=== PATIENT | female | born 1995 | race American Indian/Alaskan Native ===

== ENCOUNTER 2018-11-26 18:11 | Emergency (ER) | payer SELFPAY ==
[2018-11-26 19:15] VITALS: BP 131/67
--- NOTE | 2018-11-26 19:17 | Event Note ---
ED Screening Note Date of service: 11/26/18 Time: 19:15 ED Screening Note: 23 y o female presents to Ed cc of throat pain x yesterday am alco cc of hole in her teeth causing some pain This initial assessment/diagnostic orders/clinical plan/treatment(s) is/are subject to change based on patients health status, clinical progression and re- assessment by fellow clinical providers in the ED. Further treatment and workup at subsequent clinical providers discretion. Patient/guardian urged not to elope from the ED as their condition may be serious if not clinically assessed and managed. Initial orders include: rapid strep
--- NOTE | 2018-11-26 21:30 | Emergency Department Report ---
ED ENT HPI - General Chief complaint: Sore Throat Stated complaint: TOOTHACHE/SORE THROAT/FEVER Time Seen by Provider: 11/26/18 19:14 Source: patient Mode of arrival: Ambulatory Limitations: No Limitations - History of Present Illness MD complaint: tooth pain -: Gradual Location: tooth # Severity: moderate, severe Quality: dull Consistency: constant Improves with: none Worsens with: eating Context- Dental: history of dental caries, poor dental care Associated Symptoms: toothache - Related Data Previous Rx's Medication Instructions Recorded Last Taken Type Amoxicillin [Amoxicillin TAB] 875 mg PO BID #20 tablet 11/26/18 Unknown Rx Chlorhexidine Mouthwash [Peridex] 15 ml MM BID #1 bottle 11/26/18 Unknown Rx Ketorolac [Toradol] 10 mg PO Q6H PRN #15 tablet 11/26/18 Unknown Rx Lidocaine Viscous 2% 5 ml MM Q3H PRN #120 udc 11/26/18 Unknown Rx Allergies Allergy/AdvReac Type Severity Reaction Status Date / Time No Known Allergies Allergy Unverified 11/26/18 19:13 ED Dental HPI - General Chief complaint: Sore Throat Stated complaint: TOOTHACHE/SORE THROAT/FEVER Time Seen by Provider: 11/26/18 19:14 Source: patient Mode of arrival: Ambulatory Limitations: No Limitations - Related Data Previous Rx's Medication Instructions Recorded Last Taken Type Amoxicillin [Amoxicillin TAB] 875 mg PO BID #20 tablet 11/26/18 Unknown Rx Chlorhexidine Mouthwash [Peridex] 15 ml MM BID #1 bottle 11/26/18 Unknown Rx Ketorolac [Toradol] 10 mg PO Q6H PRN #15 tablet 11/26/18 Unknown Rx Lidocaine Viscous 2% 5 ml MM Q3H PRN #120 udc 11/26/18 Unknown Rx Allergies Allergy/AdvReac Type Severity Reaction Status Date / Time No Known Allergies Allergy Unverified 11/26/18 19:13 ED Review of Systems ROS: Stated complaint: TOOTHACHE/SORE THROAT/FEVER Other details as noted in HPI Comment: All other systems reviewed and negative ED Past Medical Hx - Past Medical History Previous Medical History?: No - Surgical History Past Surgical History?: No - Social History Smoking Status: Never Smoker Substance Use Type: None - Medications Home Medications: Home Medications Medication Instructions Recorded Confirmed Last Taken Type Amoxicillin [Amoxicillin TAB] 875 mg PO BID #20 tablet 11/26/18 Unknown Rx Chlorhexidine Mouthwash [Peridex] 15 ml MM BID #1 bottle 11/26/18 Unknown Rx Ketorolac [Toradol] 10 mg PO Q6H PRN #15 tablet 11/26/18 Unknown Rx Lidocaine Viscous 2% 5 ml MM Q3H PRN #120 udc 11/26/18 Unknown Rx ED Physical Exam - General Limitations: No Limitations General appearance: alert, in no apparent distress - Head Head exam: Present: atraumatic, normocephalic - Eye Eye exam: Present: normal appearance - ENT ENT exam: Present: mucous membranes moist, other (severe dental erosion to tooth #31 and 32. Adjacent gingival erythema, mild swelling. No discharge or bleeding is apparent. Tongue and uvula are midline. Airway is patent.) - Neck Neck exam: Present: normal inspection - Respiratory Respiratory exam: Present: normal lung sounds bilaterally. Absent: respiratory distress - Cardiovascular Cardiovascular Exam: Present: regular rate, normal rhythm. Absent: systolic murmur, diastolic murmur, rubs, gallop - GI/Abdominal GI/Abdominal exam: Present: soft, normal bowel sounds - Extremities Exam Extremities exam: Present: normal inspection - Back Exam Back exam: Present: normal inspection - Neurological Exam Neurological exam: Present: alert, oriented X3 - Psychiatric Psychiatric exam: Present: normal affect, normal mood - Skin Skin exam: Present: warm, dry, intact, normal color. Absent: rash ED Course Vital Signs 11/26/18 19:14 Temperature 98.2 F Pulse Rate 65 Respiratory 18 Rate Blood Pressure 131/67 O2 Sat by Pulse 100 Oximetry ED Medical Decision Making - Medical Decision Making 23-year-old female with severe dental erosion and impending dental infection to the right lower molar region. No airway compromise. Vascular importance of follow-up with a dentist for repair of her widespread poor dentition Critical care attestation.: If time is entered above; I have spent that time in minutes in the direct care of this critically ill patient, excluding procedure time. ED Disposition Clinical Impression: Dentalgia Disposition: [id number] TO HOME OR SELFCARE Is pt being admited?: No Does the pt Need Aspirin: No Condition: Stable Instructions: Toothache (ED), Dental Caries (ED) Prescriptions: Amoxicillin [Amoxicillin TAB] 875 mg PO BID #20 tablet Lidocaine Viscous 2% 5 ml MM Q3H PRN #120 udc PRN Reason: Pain, Moderate (4-6) Chlorhexidine Mouthwash [Peridex] 15 ml MM BID #1 bottle Ketorolac [Toradol] 10 mg PO Q6H PRN #15 tablet PRN Reason: Pain Referrals: PRIMARY CARE,MD [Primary Care Provider] - 3-5 Days [facility] [Outside] - 3-5 Days
[2018-11-26] MEDS ORDERED: TORADOL ONE (21:51)
[2018-11-26] MEDS ORDERED: TORADOL IM ONE (22:16)
== END 2018-11-26 22:16 | disposition home or self-care (01) ==
LOC: ED 18:11
DX: K08.89 Other specified disorders of teeth and supporting structures (principal)
CPT/HCPCS: 87116; 87430; 96372; 99283; J1885

== ENCOUNTER 2020-01-28 01:42 | Emergency (ER) | payer MEDICAID ==
[2020-01-28 03:13] LABS: Basophils % (Auto) 0.5 % (0.0-1.8); Eosinophils # (Auto) 0.2 K/mm3 (0.0-0.4); Eosinophils % (Auto) 2.5 % (0.0-4.3); Hematocrit 33.8 % (30.3-42.9); Hemoglobin 10.9 gm/dl (10.1-14.3); Lymphocytes # (Auto) 1.9 K/mm3 (1.2-5.4); Lymphocytes % (Auto) 31.3 % (13.4-35.0); Mean Corpuscular HGB Conc 32 % (30-34); Monocytes # (Auto) 0.4 K/mm3 (0.0-0.8); Monocytes % (Auto) 6.6 % (0.0-7.3); Platelet Count 253 K/mm3 (140-440); Red Blood Count 4.83 M/mm3 (3.65-5.03)
[2020-01-28 03:16] LABS: Mean Corpuscular Volume 70 fl (79-97); Red Cell Distribution Width 24.6 % (13.2-15.2)
[2020-01-28 03:25] LABS: Alanine Aminotransferase 16 units/L (7-56); BUN/Creatinine Ratio 16; Blood Urea Nitrogen 13 mg/dL (7-17); Calcium 8.9 mg/dL (8.4-10.2); Hemolysis Index 0
[2020-01-28 03:26] VITALS: BP 118/70
== END 2020-01-28 05:30 | disposition left against medical advice (07) ==
LOC: ED 01:42
DX: R11.10 Vomiting, unspecified (principal); Z53.21 Procedure and treatment not carried out due to patient leaving prior to being seen by health care provider
CPT/HCPCS: 36415; 80053; 84703; 85025

== ENCOUNTER 2020-08-18 23:42 | Emergency (ER) | payer MEDICAID ==
[2020-08-19 02:11] LABS: Bacteria,Urine 1+ /HPF (Negative); Bilirubin,Urine NEG (Negative); Blood,Urine MOD (Negative); Color,Urine Yellow (Yellow); Mucus,Urine FEW /HPF; Protein,Urine <15 mg/dL mg/dL (Negative); Urobilinogen,Urine < 2.0 mg/dL (<2.0)
[2020-08-19 02:51] VITALS: BP 131/84
[2020-08-19] MEDS ORDERED: ACETAMINOPHEN 500 MG TAB PO ONE (03:55)
[2020-08-19] MEDS ORDERED: cephALEXin 500 MG CAP PO ONE (03:55)
[2020-08-19 04:14] LABS: HCG Qualitative,Urine Negative (Negative)
--- NOTE | 2020-08-19 05:00 | Emergency Department Report ---
ED Female HPI - General Chief complaint: Urogenital-Female Stated complaint: PELVIC PAIN Source: patient Mode of arrival: Ambulatory Limitations: No Limitations - History of Present Illness Initial comments: Patient is a A0 25-year-old -[place] female with a history of obesity who presents to the ED with complaint of acute onset persistent suprapubic pain with urinary frequency and urgency for the last 12 hours. Patient states that the symptoms have been persistent and constant and appear to be getting worse. Patient denies vaginal bleeding, vaginal discharge, dysuria, low back pain, chest pain, shortness of breath, nausea and vomiting, fever and chills or diarrhea and dyspareunia. MD Complaint: pelvic pain, other (Urinary frequency and urgency) -: Sudden, hour(s) (12) Location: suprapubic Radiation: non-radiating Severity: moderate Severity scale (0 -10): 6 Quality: cramping, sharp Consistency: constant Improves with: none Worsens with: urination, movement Are you Now?: No Associated Symptoms: denies other symptoms, abdominal pain (Suprapubic pain). denies: vaginal discharge, vaginal bleeding, nausea/vomiting, fever/chills, headaches, loss of appetite, dysuria, hematuria, rash, seizure, shortness of breath, syncope, weakness - Related Data Previous Rx's Medication Instructions Recorded Last Taken Type Amoxicillin [Amoxicillin TAB] 875 mg PO BID #20 tablet 11/26/18 Unknown Rx Chlorhexidine Mouthwash [Peridex] 15 ml MM BID #1 bottle 11/26/18 Unknown Rx Ketorolac [Toradol] 10 mg PO Q6H PRN #15 tablet 11/26/18 Unknown Rx Lidocaine Viscous 2% 5 ml MM Q3H PRN #120 udc 11/26/18 Unknown Rx Ibuprofen [Motrin] 800 mg PO Q8HR PRN #30 tablet 08/19/20 Unknown Rx cephALEXin [Keflex] 500 mg PO Q6HR #40 capsule 08/19/20 Unknown Rx Allergies Allergy/AdvReac Type Severity Reaction Status Date / Time No Known Allergies Allergy Unverified 11/26/18 19:13 ED Review of Systems ROS: Stated complaint: PELVIC PAIN Other details as noted in HPI Constitutional: denies: chills, fever Eyes: denies: eye pain, eye discharge, vision change ENT: denies: ear pain, throat pain Respiratory: denies: cough, shortness of breath, wheezing Cardiovascular: denies: chest pain, palpitations Endocrine: no symptoms reported Gastrointestinal: abdominal pain (Suprapubic pain). denies: nausea, vomiting, diarrhea Genitourinary: urgency, frequency. denies: dysuria, discharge Musculoskeletal: denies: back pain, joint swelling, arthralgia Skin: denies: rash, lesions Neurological: denies: headache, weakness, paresthesias Psychiatric: denies: anxiety, depression Hematological/Lymphatic: denies: easy bleeding, easy bruising ED Past Medical Hx - Past Medical History Previous Medical History?: No - Surgical History Past Surgical History?: No - Social History Smoking Status: Never Smoker Substance Use Type: None - Medications Home Medications: Home Medications Medication Instructions Recorded Confirmed Last Taken Type Amoxicillin [Amoxicillin TAB] 875 mg PO BID #20 tablet 11/26/18 Unknown Rx Chlorhexidine Mouthwash [Peridex] 15 ml MM BID #1 bottle 11/26/18 Unknown Rx Ketorolac [Toradol] 10 mg PO Q6H PRN #15 tablet 11/26/18 Unknown Rx Lidocaine Viscous 2% 5 ml MM Q3H PRN #120 udc 11/26/18 Unknown Rx Ibuprofen [Motrin] 800 mg PO Q8HR PRN #30 tablet 08/19/20 Unknown Rx cephALEXin [Keflex] 500 mg PO Q6HR #40 capsule 08/19/20 Unknown Rx ED Physical Exam - General Limitations: No Limitations General appearance: alert, in no apparent distress - Head Head exam: Present: atraumatic, normocephalic, normal inspection - Eye Eye exam: Present: normal appearance, PERRL, EOMI - ENT ENT exam: Present: normal exam, normal orophraynx, mucous membranes moist, TM's normal bilaterally, normal external ear exam - Neck Neck exam: Present: normal inspection, full ROM - Respiratory Respiratory exam: Present: normal lung sounds bilaterally. Absent: respiratory distress, wheezes, rales, rhonchi, chest wall tenderness, other - Cardiovascular Cardiovascular Exam: Present: regular rate, normal rhythm, normal heart sounds. Absent: systolic murmur, diastolic murmur, rubs, gallop - GI/Abdominal GI/Abdominal exam: Present: soft, normal bowel sounds. Absent: tenderness, guarding, rebound, hyperactive bowel sounds, hypoactive bowel sounds, organomegaly, mass - Bi-manual exam: Present: other (Pelvic exam deferred) - Extremities Exam Extremities exam: Present: normal inspection, full ROM, normal capillary refill - Back Exam Back exam: Present: normal inspection, full ROM. Absent: tenderness, CVA tenderness (R), CVA tenderness (L), muscle spasm, vertebral tenderness - Neurological Exam Neurological exam: Present: alert, oriented X3, CN II-XII intact, normal gait, reflexes normal - Psychiatric Psychiatric exam: Present: normal affect, normal mood - Skin Skin exam: Present: warm, dry, intact, normal color. Absent: rash ED Course Vital Signs 08/19/20 01:12 Temperature 98.7 F Respiratory 18 Rate Blood Pressure 131/84 ED Medical Decision Making - Medical Decision Making This is a A0 25-year-old -[place] female with a history of obesity who presents to the ED with complaint of acute onset persistent suprapubic pain with urinary frequency and urgency for the last 12 hours. Patient states that the symptoms have been persistent and constant and appear to be getting worse. In the ED, patient is alert and oriented x3 and is not in distress. Urinalysis shows significant urinary tract infection. Patient was treated for pain in the ED and also given initial oral antibiotics in the ED. On reevaluation, patient's pain is well controlled medications. Patient was discharged home on pain medications and antibiotics for UTI and was advised to follow-up with a primary care physician or [facility] physician in 5 to 7 days for reevaluation or return to the ED immediately if symptoms get worse. - Differential Diagnosis UTI; ; ovarian cyst; fibroids Critical care attestation.: If time is entered above; I have spent that time in minutes in the direct care of this critically ill patient, excluding procedure time. ED Disposition Clinical Impression: Acute suprapubic pain, Acute urinary tract infection Disposition: TO HOME OR SELFCARE Is pt being admited?: No Does the pt Need Aspirin: No Condition: Stable Instructions: Pelvic Pain, Female, [id number], Urinary Tract Infection, Adult, [id number] Additional Instructions: Lab test results showed significant urinary tract infection. Therefore take medication with food, drink plenty of fluids and follow-up with your primary care physician in 5 to 7 days for reevaluation. Return to the ED immediately if symptoms get worse. Prescriptions: cephALEXin [Keflex] 500 mg PO Q6HR #40 capsule Ibuprofen [Motrin] 800 mg PO Q8HR PRN #30 tablet PRN Reason: Pain , Severe (7-10) Referrals: [facility] [Provider Group] - 3-5 Days Time of Disposition: 04:59 Print Language: BAHAMIAN
== END 2020-08-19 05:10 | disposition home or self-care (01) ==
LOC: ED 23:42
DX: N39.0 Urinary tract infection, site not specified (principal); R10.2 Pelvic and perineal pain; Z79.1 Long term (current) use of non-steroidal anti-inflammatories (NSAID); Z79.2 Long term (current) use of antibiotics; Z79.899 Other long term (current) drug therapy
CPT/HCPCS: 81001; 81025; 87086

== ENCOUNTER 2021-03-06 18:13 | Emergency (ER) | payer MEDICAID ==
[2021-03-06 18:22] VITALS: BP 120/78
--- NOTE | 2021-03-06 18:58 | Emergency Department Report ---
ED ENT HPI - General Chief complaint: Pain General Stated complaint: BODYACHES R/T TOOTHACHE Time Seen by Provider: 03/06/21 18:36 Source: patient Mode of arrival: Ambulatory Limitations: No Limitations - History of Present Illness Initial comments: Patient is a 18-year-old female presents emergency room with complaints of left lower dental pain for 3 days. She reports that all of her molars are decayed. She states that she has not seen a dentist in several years. She reports that she made a dental appointment but it is not until 03/17/2021. She states that today she was having some body aches and chills. She states that she has had a couple episodes of vomiting but is able to tolerate p.o. intake. She denies any fever, difficulty swallowing, difficulty breathing. Patient denies any past medical history. No allergies to medications. She states that she is currently on her menstrual cycle. - Related Data Previous Rx's Medication Instructions Recorded Last Taken Type Amoxicillin [Amoxicillin TAB] 875 mg PO BID #20 tablet 11/26/18 Unknown Rx Ketorolac [Toradol] 10 mg PO Q6H PRN #15 tablet 11/26/18 Unknown Rx Lidocaine Viscous 2% 5 ml MM Q3H PRN #120 udc 11/26/18 Unknown Rx Ibuprofen [Motrin] 800 mg PO Q8HR PRN #30 tablet 08/19/20 Unknown Rx cephALEXin [Keflex] 500 mg PO Q6HR #40 capsule 08/19/20 Unknown Rx Chlorhexidine Mouthwash [Peridex] 15 ml MM BID #1 bottle 03/06/21 Unknown Rx Naproxen 375 mg PO BID PRN #14 tablet 03/06/21 Unknown Rx Penicillin V Potassium 500 mg PO QID 7 Days #28 tablet 03/06/21 Unknown Rx Allergies Allergy/AdvReac Type Severity Reaction Status Date / Time No Known Allergies Allergy Unverified 11/26/18 19:13 ED Dental HPI - General Chief complaint: Pain General Stated complaint: BODYACHES R/T TOOTHACHE Time Seen by Provider: 03/06/21 18:36 Source: patient Mode of arrival: Ambulatory Limitations: No Limitations - Related Data Previous Rx's Medication Instructions Recorded Last Taken Type Amoxicillin [Amoxicillin TAB] 875 mg PO BID #20 tablet 11/26/18 Unknown Rx Ketorolac [Toradol] 10 mg PO Q6H PRN #15 tablet 11/26/18 Unknown Rx Lidocaine Viscous 2% 5 ml MM Q3H PRN #120 udc 11/26/18 Unknown Rx Ibuprofen [Motrin] 800 mg PO Q8HR PRN #30 tablet 08/19/20 Unknown Rx cephALEXin [Keflex] 500 mg PO Q6HR #40 capsule 08/19/20 Unknown Rx Chlorhexidine Mouthwash [Peridex] 15 ml MM BID #1 bottle 03/06/21 Unknown Rx Naproxen 375 mg PO BID PRN #14 tablet 03/06/21 Unknown Rx Penicillin V Potassium 500 mg PO QID 7 Days #28 tablet 03/06/21 Unknown Rx Allergies Allergy/AdvReac Type Severity Reaction Status Date / Time No Known Allergies Allergy Unverified 11/26/18 19:13 ED Review of Systems ROS: Stated complaint: BODYACHES R/T TOOTHACHE Other details as noted in HPI Comment: All other systems reviewed and negative ED Past Medical Hx - Social History Smoking Status: Never Smoker Substance Use Type: None - Medications Home Medications: Home Medications Medication Instructions Recorded Confirmed Last Taken Type Amoxicillin [Amoxicillin TAB] 875 mg PO BID #20 tablet 11/26/18 Unknown Rx Ketorolac [Toradol] 10 mg PO Q6H PRN #15 tablet 11/26/18 Unknown Rx Lidocaine Viscous 2% 5 ml MM Q3H PRN #120 udc 11/26/18 Unknown Rx Ibuprofen [Motrin] 800 mg PO Q8HR PRN #30 tablet 08/19/20 Unknown Rx cephALEXin [Keflex] 500 mg PO Q6HR #40 capsule 08/19/20 Unknown Rx Chlorhexidine Mouthwash [Peridex] 15 ml MM BID #1 bottle 03/06/21 Unknown Rx Naproxen 375 mg PO BID PRN #14 tablet 03/06/21 Unknown Rx Penicillin V Potassium 500 mg PO QID 7 Days #28 tablet 03/06/21 Unknown Rx ED Physical Exam - General Limitations: No Limitations General appearance: alert, in no apparent distress - Head Head exam: Present: atraumatic, normocephalic - Eye Eye exam: Present: normal appearance - ENT ENT exam: Present: mucous membranes moist, other (cracked teeth/dental caries to all 4 back molars, there is edema of the left lower gumline, no fluctuance, no drainage, no facial edema, uvula is midline, no uvular edema or deviation, no trismus, no tongue elevation, no muffled voice, no submandibular edema,no muffled voice) - Neurological Exam Neurological exam: Present: alert, oriented X3 - Psychiatric Psychiatric exam: Present: normal affect, normal mood - Skin Skin exam: Present: warm, dry, intact ED Course Vital Signs 03/06/21 03/06/21 18:21 19:43 Temperature 98.4 F Pulse Rate 59 L 62 Respiratory 20 14 Rate Blood Pressure 120/78 [Right] O2 Sat by Pulse 100 100 Oximetry ED Medical Decision Making - Medical Decision Making Patient is a 18-year-old female presents emergency room with complaints of left lower dental pain for 3 days. She reports that all of her molars are decayed. She states that she has not seen a dentist in several years. She reports that she made a dental appointment but it is not until 03/17/2021. She states that today she was having some body aches and chills. She states that she has had a couple episodes of vomiting but is able to tolerate p.o. intake. She denies any fever, difficulty swallowing, difficulty breathing. Patient denies any past medical history. No allergies to medications. She states that she is currently on her menstrual cycle. Vitals are stable. On exam cracked teeth/dental caries to all 4 back molars, there is edema of the left lower gumline, no fluctuance, no drainage, no facial edema, uvula is midline, no uvular edema or deviation, no trismus, no tongue elevation, no muffled voice, no submandibular edema,no muffled voice. Examination appears insistent with infected dental caries. No signs of significant abscess at this time. No clinical signs of facial cellulitis, facial abscess, or Jitendra's. Patient given prescription for medication. Advised patient Please use medication as prescribed. Follow-up with a dentist. Return to emergency room for any new or worsening symptoms. Critical care attestation.: If time is entered above; I have spent that time in minutes in the direct care of this critically ill patient, excluding procedure time. ED Disposition Clinical Impression: Infected dental caries, Dentalgia, Cracked tooth Disposition: HOME / SELF CARE / HOMELESS Is pt being admited?: No Does the pt Need Aspirin: No Condition: Stable Additional Instructions: Please use medication as prescribed. Follow-up with a dentist. Return to emergency room for any new or worsening symptoms. Prescriptions: Naproxen 375 mg PO BID PRN #14 tablet PRN Reason: pain Penicillin V Potassium 500 mg PO QID 7 Days #28 tablet Chlorhexidine Mouthwash [Peridex] 15 ml MM BID #1 bottle Referrals: [facility] [Outside] - 3-5 Days [facility] [Outside] - 3-5 Days Time of Disposition: 18:57 Print Language: MAORI
== END 2021-03-06 19:44 | disposition home or self-care (01) ==
LOC: ED 18:13
DX: K02.9 Dental caries, unspecified (principal); K08.89 Other specified disorders of teeth and supporting structures; K03.81 Cracked tooth
CPT/HCPCS: 99282

== ENCOUNTER 2021-08-04 16:15 | Emergency (ER) | payer MEDICAID ==
[2021-08-04 16:30] VITALS: BP 136/82
== END 2021-08-04 22:50 | disposition left against medical advice (07) ==
LOC: ED 16:15
DX: R10.9 Unspecified abdominal pain (principal); R06.02 Shortness of breath; Z53.21 Procedure and treatment not carried out due to patient leaving prior to being seen by health care provider; R05.9 Cough, unspecified